=== PATIENT | female | born 1975 | race Caucasian/White ===

== ENCOUNTER 2016-11-09 18:04 | Emergency (ER) | payer OTHER | END 2016-11-09 19:20 | disposition home or self-care (01) | LOC: ER 18:04 | DX: J00 Acute nasopharyngitis [common cold] (principal); J01.01 Acute recurrent maxillary sinusitis; J01.11 Acute recurrent frontal sinusitis; J01.21 Acute recurrent ethmoidal sinusitis; F17.210 Nicotine dependence, cigarettes, uncomplicated; Z79.899 Other long term (current) drug therapy; I10 Essential (primary) hypertension ==